=== PATIENT | female | born 1995 | race Two or more races ===

== ENCOUNTER 2023-10-24 10:52 | Outpatient (CLI) | payer OTHER, SELFPAY ==
[2023-10-24 12:06] LABS: HCG,Quantitative 96 mIU/ml (0-5.42)
[2023-10-25 08:25] LABS: Progesterone 6.3 ng/mL (.)
== END 2023-10-24 23:59 | disposition home or self-care (01) ==
PROVIDERS: Visit Provider Obstetrics & Gynecology
DX: N92.6 Irregular menstruation, unspecified (principal); Z32.00 Encounter for pregnancy test, result unknown
CPT/HCPCS: 36415; 84144; 84702

== ENCOUNTER 2023-10-29 09:05 | Outpatient (CLI) | payer OTHER, SELFPAY ==
[2023-10-29 10:15] LABS: HCG,Quantitative 1115 mIU/ml (0-5.42)
== END 2023-10-29 23:59 | disposition home or self-care (01) ==
LOC: LAB 09:06
PROVIDERS: Visit Provider Obstetrics & Gynecology
DX: Z32.00 Encounter for pregnancy test, result unknown (principal)
CPT/HCPCS: 84702

== ENCOUNTER 2023-11-06 16:24 | Outpatient (CLI) | payer OTHER, SELFPAY ==
[2023-11-06 17:38] LABS: HCG,Quantitative 6920 mIU/ml (0-5.42)
== END 2023-11-06 23:59 | disposition home or self-care (01) ==
LOC: LAB 16:24
PROVIDERS: Visit Provider Obstetrics & Gynecology
DX: O26.891 Other specified pregnancy related conditions, first trimester (principal); Z3A.01 Less than 8 weeks gestation of pregnancy
CPT/HCPCS: 36415; 84702; 86850; 87086

== ENCOUNTER 2023-11-14 12:49 | Outpatient (CLI) | payer SELFPAY ==
--- NOTE | 2023-11-14 12:50 | US_ITS ---
PROCEDURE: US OB <= 14 WEEKS FETUS CLINICAL INDICATION: for dates, and confirm viability COMPARISON: No exams were available for comparison FINDINGS: Transvaginal sonographic images of the pelvis were obtained. From her last menstrual period she is 7weeks 2days. The uterus is retroverted. An intrauterine gestational sac is present with a pole with a crown-rump length of 0.51cm This correlates to a gestational age of 6weeks 2days. heart tones are present with an FHR of 124bpm. Yolk sac is noted. The yolk sac measures 6.0mm. There appears to be a small subchorionic hemorrhage. The right ovary is seen and appears normal. The left ovary is seen and appears normal. There is no fluid in the cul-de-sac. IMPRESSION: 1. Retroverted uterus with a viable intrauterine . From her last menstrual period she is 7 weeks 2 days. 2. Fetus measures 6 weeks 2 days and her due date should be revised to reflect this. Her revised ANTOLIN will be 07/07/2024. 3. Both ovaries are seen and appear normal. 4. No fluid in the cul-de-sac. Dictated by: Mika Gracia MD 11/14/2023 17:08 Mika Gracia MD in [facility] 11/14/2023 17:08
== END 2023-11-14 23:59 | disposition home or self-care (01) ==
LOC: RAD 12:50
PROVIDERS: Visit Provider Obstetrics & Gynecology
DX: Z87.59 Personal history of other complications of pregnancy, childbirth and the puerperium; Z3A.01 Less than 8 weeks gestation of pregnancy; O36.80X0 Pregnancy with inconclusive fetal viability, not applicable or unspecified
CPT/HCPCS: 76801

== ENCOUNTER 2024-01-11 11:40 | Outpatient (CLI) | payer OTHER, SELFPAY ==
[2024-01-11 12:25] LABS: Basophils # 0.1 K/mm3 (0-0.2); Basophils % 0.7 % (0.1-2.0); Eosinophils # 0.1 K/mm3 (0.0-0.4); Eosinophils % 0.6 % (0.1-12.0); Hemoglobin 13.1 g/dL (12.2-16.2); Lymphocytes # 2.9 K/mm3 (0.7-4.5); Lymphocytes % 31.6 % (10-50); Mean Corpuscular HGB Conc 34.5 g/dL (31.8-35.4); Mean Corpuscular Volume 92.6 fl (81-99); Mean Platelet Volume 8.9 fl (7.4-10.4); Monocytes # 0.6 K/mm3 (0.1-1.0); Neutrophils # 5.6 K/mm3 (1.8-7.8); Platelet Count 278 K/mm3 (142-424); Red Cell Distribution Width 13.7 % (11.5-17.5); White Blood Count 9.2 K/mm3 (4.8-10.8)
[2024-01-12 05:15] LABS: HCV Ab Non Reactive (Non Reactive); Hepatitis B Surface Antigen Negative (Negative)
[2024-01-12 07:22] LABS: Rubella Antibodies, IgG 1.28 index (Immune >0.99)
[2024-01-12 10:07] LABS: HIV (1&2) Antibody Rapid NONREACTIVE (NONREACTIVE)
[2024-01-12 12:12] LABS: Rapid Plasma Reagin Ab Titer Non Reactive titer (NonRea<1:1)
== END 2024-01-11 23:59 | disposition home or self-care (01) ==
PROVIDERS: Visit Provider Obstetrics & Gynecology
DX: Z34.90 Encounter for supervision of normal pregnancy, unspecified, unspecified trimester (principal)
CPT/HCPCS: 86703; 86803; 36415; 85025; 86593; 86762; 86850; 87340

== ENCOUNTER 2024-02-13 12:36 | Outpatient (CLI) | payer SELFPAY ==
--- NOTE | 2024-02-13 12:43 | US_ITS ---
PROCEDURE: US OB >= 14 WEEKS FETUS CLINICAL INDICATION: US OB After 14 wks for a OB Complete Anatomy scan COMPARISON: US US OB <= 14 WEEKS FETUS from 11/14/2023 FINDINGS: Transabdominal sonographic images of the pelvis were obtained. From her established due date she is 19 weeks 2 days. Single viable intrauterine gestation. Cephalic position. Placenta: Posteriorplacenta grade 1. There is a placental Conner. There is an average amount of fluid. The cervix appears satisfactory. Closed and measuring 4.8 cm in length. Complete survey performed and was unremarkable on the submitted images as in PACS. No discrete anomalies identified on survey imaging by technologist. Active fetus. Three-vessel cord with satisfactory umbilical cord insertion. 4- chamber heart noted. Situs, aortic arch, RVOT, three-vessel view appear normal. Survey of brain & ventricles Unremarkable. Cerebellum, thalamus, choroid plexus, cisterna magna appear normal. Face and neck survey unremarkable. Profile, nasion, lips and nose appeared normal. Diaphragm and chest views unremarkable. Abdomen: Both kidneys noted and unremarkable. Stomach and bladder noted and satisfactory. Spine: Survey of the spine satisfactory with no anomalies identified nor imaged. Cervical, thoracic, lower spine appear normal. Both arms and legs noted. Amniotic Fluid: Adequate. MVP 2.54 cm. Measurements: Average ultrasound age 18weeks 4days. Estimated due date by ultrasound age 0207/12/2024. Estimated weight 226g BPD = 18weeks 6days HC = 18weeks 5days AC = 18weeks 0 days FL = 18weeks 2days Growth Percentile= 4 Heart Rate = 133bpm Cerebellum = 19weeks 0 days Humerus = 18weeks 1day HC/AC is 1.28 FL/BPD is 0.64 FL/AC is 0.22 IMPRESSION: 1. Viable fetus in the cephalic presentation with a posterior placenta grade 1. There is a placental Conner. 2. The fluid is within normal limits with an MVP 2.54 cm. 3. Anatomical scan appears normal although somewhat difficult scan secondary to the early gestational age. 4. biometry is consistent with the dates. 5. Suggest repeat scan in 2-3 weeks for completeness. The heart was not seen well. Dictated by: Mika Gracia MD 02/13/2024 15:33 Mika Gracia MD in [facility] 02/13/2024 15:33
== END 2024-02-13 23:59 | disposition home or self-care (01) ==
PROVIDERS: Visit Provider Obstetrics & Gynecology
DX: Z36.3 Encounter for antenatal screening for malformations (principal); Z87.59 Personal history of other complications of pregnancy, childbirth and the puerperium; Z3A.20 20 weeks gestation of pregnancy
CPT/HCPCS: 76805

== ENCOUNTER 2024-02-28 10:17 | Outpatient (CLI) | payer SELFPAY ==
--- NOTE | 2024-02-28 10:18 | US_ITS ---
PROCEDURE: US OB /MATERNAL DETAIL CLINICAL INDICATION: repeat anatomy COMPARISON: US US OB <= 14 WEEKS FETUS from 11/14/2023 US US OB >= 14 WEEKS FETUS from 02/13/2024 FINDINGS: Transabdominal sonographic images of the pelvis were obtained. From her established due date she is 21 weeks 3 days. Single viable intrauterine gestation. Cephalic position. Placenta: Posteriorplacenta grade 1. There are several small placental lakes. There is an average amount of fluid. The cervix appears satisfactory. Closed and measuring 5.84 cm in length. Complete survey performed and was unremarkable on the submitted images as in PACS. No discrete anomalies identified on survey imaging by technologist. Active fetus. Three-vessel cord with satisfactory umbilical cord insertion. 4- chamber heart noted. Situs, aortic arch, LVOT, RVOT, three-vessel view appear normal. Survey of brain & ventricles Unremarkable. Cerebellum, thalamus, choroid plexus, cisterna magna appear normal. Face and neck survey unremarkable. Profile, nasion, lips and nose appeared normal. Diaphragm and chest views unremarkable. Abdomen: Both kidneys noted and unremarkable. Stomach and bladder noted and satisfactory. Spine: Survey of the spine satisfactory with no anomalies identified nor imaged. Cervical, thoracic, lower spine appear normal. Both arms and legs noted. Amniotic Fluid: Adequate. Measurements: Average ultrasound age 20weeks 3days. Estimated due date by ultrasound age 0207/14/2024. Estimated weight 330g BPD = 20weeks 6days HC = 20weeks 4days AC = 20weeks 1day FL = 20weeks 0 days Growth Percentile= 3 Heart Rate = 133bpm Cerebellum = 20weeks 2days Humerus = 20weeks 5days HC/AC is 1.22 FL/BPD is 0.66 FL/AC is 0.22 IMPRESSION: 1. Viable fetus in the cephalic presentation with a posterior placenta grade 1. 2. The fluid is within normal limits. 3. Anatomical scan appears normal. 4. biometry is consistent with the dates. Dictated by: Mika Gracia MD 02/29/2024 05:57 Mkia Gracia MD in [place] 02/29/2024 05:57
== END 2024-02-28 23:59 | disposition home or self-care (01) ==
LOC: RAD 10:17
PROVIDERS: Visit Provider Obstetrics & Gynecology
DX: Z34.92 Encounter for supervision of normal pregnancy, unspecified, second trimester (principal); Z3A.21 21 weeks gestation of pregnancy
CPT/HCPCS: 76811

== ENCOUNTER 2024-04-22 11:08 | Outpatient (CLI) | payer SELFPAY ==
[2024-04-22 11:47] LABS: Basophils # 0.1 K/mm3 (0-0.2); Basophils % 0.8 % (0.1-2.0); Eosinophils # 0.1 K/mm3 (0.0-0.4); Eosinophils % 0.7 % (0.1-12.0); Hematocrit 35.6 % (37.0-47.0); Hemoglobin 12.5 g/dL (12.2-16.2); Lymphocytes # 2.2 K/mm3 (0.7-4.5); Lymphocytes % 26.6 % (10-50); Mean Corpuscular HGB Conc 35.2 g/dL (31.8-35.4); Mean Corpuscular Hemoglobin 31.4 pg (27.0-31.2); Mean Corpuscular Volume 89.2 fl (81-99); Mean Platelet Volume 8.5 fl (7.4-10.4); Monocytes # 0.5 K/mm3 (0.1-1.0); Neutrophils # 5.3 K/mm3 (1.8-7.8); Neutrophils % 65.9 % (37.0-80.0); Platelet Count 254 K/mm3 (142-424); Red Blood Count 3.99 M/mm3 (4.20-5.40); Red Cell Distribution Width 13.9 % (11.5-17.5); White Blood Count 8.1 K/mm3 (4.8-10.8)
[2024-04-22 11:59] LABS: Hemoglobin A1C 4.5 % (4.0-6.0)
[2024-04-23 13:12] LABS: Rapid Plasma Reagin Ab Titer Non Reactive titer (NonRea<1:1)
== END 2024-04-22 23:59 | disposition home or self-care (01) ==
PROVIDERS: Visit Provider Obstetrics & Gynecology
DX: Z34.90 Encounter for supervision of normal pregnancy, unspecified, unspecified trimester (principal)
CPT/HCPCS: 36415; 83036; 85025; 86593

== ENCOUNTER 2024-04-25 11:11 | Outpatient (CLI) | payer SELFPAY ==
[2024-04-25 11:16] VITALS: BMI 29.8
[2024-04-25 11:30] LABS: Microscopic, Urine URINE MICROSCOPIC (MICROSCOPIC)
[2024-04-25 11:37] LABS: Appearance,Urine SL CLOUDY (Clear); Blood, Urine Negative (Negative); Color,Urine YELLOW (Yellow); Glucose,Urine (UA) Negative (Negative); Ketones,Urine Negative (Negative); Leukocyte Esterase,Urine Negative (Negative); Nitrate,Urine Negative (Negative); Protein,Urine 1+ (Negative); Specific Gravity, Urine >= 1.030 (1.005-1.030); Urobilinogen,Urine 0.2 EU/dl (0.2)
[2024-04-25 11:43] LABS: Bilirubin,Urine 1+ (Negative)
[2024-04-25 11:51] LABS: Benzodiazepines Screen,Urine Negative ng/ml (<200)
[2024-04-25 11:52] LABS: Amphetamine/Metha Screen,Urine Negative ng/ml (<1000); Barbiturates Screen,Urine Negative ng/ml (<200)
[2024-04-25 11:53] LABS: Cannabinoid Screen,Urine Negative ng/ml (<50)
[2024-04-25 11:54] LABS: Cocaine Screen,Urine Negative ng/ml (<300); Methadone Screen,Urine Negative ng/ml (<300)
[2024-04-25 11:55] LABS: Opiate Screen,Urine Negative ng/ml (<300)
[2024-04-25 11:56] LABS: Phencyclidine Screen,Urine Negative ng/ml (<25)
[2024-04-25 11:58] LABS: Bacteria,Urine 1+ /lpf; RBC,Urine Occasional #/hpf (0-3); WBC,Urine Occasional #/hpf (0-3)
--- NOTE | 2024-04-25 11:58 | ECG_ITS ---
APPROVED REPORT Exam: Resting ECG HR:85 bpm ECG Measurements Heart Rate 85 AXES IN 143 P 54 QRSd 79 QRS 49 QT 357 T 7 QTc 399 Conclusion SINUS RHYTHM NORMAL ECG UNCONFIRMED REPORT Electronically signed by : Jason Toney MD 04/26/2024 09:06:52
[2024-04-25] MEDS: DEXTROSE 5%-LACTATED RINGERS 1,000 ML 999 ML IV (12:05)
[2024-04-25 12:15] VITALS: BP 100/68; PULSE 98; RESP 16; TEMP 36.4; O2SAT 100; BMI 29.8
[2024-04-25 12:17] LABS: Basophils # 0.1 K/mm3 (0-0.2); Basophils % 0.6 % (0.1-2.0); Eosinophils # 0.1 K/mm3 (0.0-0.4); Hematocrit 34.7 % (37.0-47.0); Hemoglobin 12.2 g/dL (12.2-16.2); Lymphocytes # 2.4 K/mm3 (0.7-4.5); Lymphocytes % 22.6 % (10-50); Mean Corpuscular HGB Conc 35.1 g/dL (31.8-35.4); Mean Corpuscular Hemoglobin 31.6 pg (27.0-31.2); Mean Platelet Volume 8.6 fl (7.4-10.4); Monocytes # 0.8 K/mm3 (0.1-1.0); Monocytes % 7.1 % (1.7-9.3); Neutrophils # 7.4 K/mm3 (1.8-7.8); Neutrophils % 68.7 % (37.0-80.0); Platelet Count 276 K/mm3 (142-424); Red Blood Count 3.85 M/mm3 (4.20-5.40); Red Cell Distribution Width 13.3 % (11.5-17.5); White Blood Count 10.8 K/mm3 (4.8-10.8)
[2024-04-25 12:25] LABS: Albumin Level 3.7 g/dl (3.5-5.0); Chloride 106 mmol/L (98-107)
[2024-04-25 12:26] LABS: Potassium 3.2 mmoL/L (3.5-5.1); Sodium 135 mmol/L (136-145)
[2024-04-25 12:28] LABS: Alanine Aminotransferase 11 U/L (12-78); Alkaline Phosphatase 87 U/L (38-126); Anion Gap 11.2 mEq/L (5-15); Aspartate Amino Transferase 21 U/L (14-36); Bilirubin,Total 0.7 mg/dl (0.2-1.3); Blood Urea Nitrogen 10 mg/dl (7-17); Carbon Dioxide 21 mmol/L (22.0-30.0); Creatinine Clearance Estimated 161 mL/min (50-200); Estimated Glomerular Filt Rate 121 ml/min (>60); GFR (African American) 146 ML/MIN (>60)
[2024-04-25 12:29] LABS: Albumin/Globulin Ratio 1.1 (1.1-1.8); Calcium 8.4 mg/dl (8.4-10.2); Globulin 3.4 g/dL (1.3-3.2); Glucose 91 mg/dl (74-100); Magnesium 1.7 mg/dl (1.6-2.3); Total Protein,Serum 7.1 g/dl (6.3-8.2)
[2024-04-25 12:30] LABS: POC Glucose,Bedside 89 (70-110)
== END 2024-04-25 14:18 | disposition home or self-care (01) ==
LOC: OBOUT 11:14 → OB 11:15
PROVIDERS: Visit Provider Obstetrics & Gynecology
DX: O26.893 Other specified pregnancy related conditions, third trimester (principal); R42 Dizziness and giddiness; Z3A.29 29 weeks gestation of pregnancy
CPT/HCPCS: 80053; 80307; 81001; 82962; 83735; 85025; 93005; G0463

== ENCOUNTER 2024-05-28 08:57 | Outpatient (CLI) | payer MEDICAID, SELFPAY ==
--- NOTE | 2024-05-28 09:01 | US_ITS ---
PROCEDURE: US OB BIOPHYSICAL PROFILE CLINICAL INDICATION: SGA, US OB BPP/Growth with SD Ratio and MARYAM COMPARISON: US US OB <= 14 WEEKS FETUS from 11/14/2023 US US OB >= 14 WEEKS FETUS from 02/13/2024 US US OB /MATERNAL DETAIL from 02/28/2024 FINDINGS: Transabdominal sonographic images of the uterus were obtained. From her established due date she is 34 weeks 2 days. The following parameters are obtained: Viable Fetus in the cephalic presentation with a right lateral placenta grade 2. There are multiple placental lakes. Average ultrasound age is 31 weeks 5 days Estimated weight 1722 g, 3 lb 13 oz Measurements: heart Rate = 149bpm BPD = 32 weeks 0 days, 3 percentile HC = 32 weeks 4 days,< 2 percentile AC = 31 weeks 3 days,< 2 percentile FL = 30 weeks 4 days,< 2 percentile HC/AC is 1.08 FL/BPD is 0.73 FL/AC is 0.21 <2 percentile Amniotic fluid index: 8.48cm, MVP 2.98 cm Qualitative AFV:2 Breathing movements: 2 Gross Body Movements: 2 Tone: 2 Biophysical profile score: 8 Doppler evaluation of the umbilical artery: SD ratio: 3.17-4.0, normal up to 3.58 Resistive index: 0.7 No obvious anomalies evident.Kidneys, profile, bladder, stomach, four-chamber heart, three-vessel cord appear normal. IMPRESSION: 1. Viable fetus in the cephalic presentation with a right lateral placenta grade 2. 2. The fluid is within normal limits with an amniotic fluid index 8.48 cm, MVP 2.98 cm. 3. Biophysical profile is 8/8 with good breathing movement and movement seen. 4. The fetus is globally growth restricted less than the 2nd percentile. The abdominal circumference is 3 weeks behind. 5. SD ratio is normal with one slightly elevated SD at 4.0. 6. Discussed the findings with Dr. Caba. Dictated by: Mika Gracia MD 05/28/2024 15:16 Mika Gracia MD in [place] 05/28/2024 15:16
== END 2024-05-28 23:59 | disposition home or self-care (01) ==
LOC: RAD 08:58
PROVIDERS: Visit Provider Obstetrics & Gynecology
DX: O36.5930 Maternal care for other known or suspected poor fetal growth, third trimester, not applicable or unspecified (principal); Z3A.34 34 weeks gestation of pregnancy
CPT/HCPCS: 76816; 76819; 76820

== ENCOUNTER 2024-06-06 11:01 | Outpatient (CLI) | payer MEDICAID, SELFPAY ==
[2024-06-06 11:14] VITALS: BMI 30.8
[2024-06-06 11:18] VITALS: BMI 30.8
--- NOTE | 2024-06-06 11:40 | US_ITS ---
PROCEDURE INFORMATION: Exam: US Biophysical Profile Without Non-Stress Test Exam date and time: 06/06/2024 11:41 AM Age: 28 years old Clinical indication: Screening exam; Routine US screening of fetus; Third trimester (>=28 weeks 0 days); ; Additional info: Non reactive nst TECHNIQUE: Imaging protocol: US biophysical profile without non-stress testing. COMPARISON: US OB BIOPHYSICAL PROFILE 05/28/2024 8:57 AM FINDINGS: Gestation: Single live intrauterine gestation with estimated gestational age of approximately 35 weeks 4 days based on last menstrual period. heart rate: 130 bpm. heart rate 130 bpm. presentation and position: presentation is cephalic. Amniotic fluid (Qualitative): 2/2 Amniotic fluid index: MARYAM is 7.18 cm. Amniotic fluid index 7.18. Largest pocket of approximately 2.8 cm. BIOPHYSICAL PROFILE: breathing (BPP): 2 /2. 2/2 gross body movement (BPP): 2 /2. 2/2 tone (BPP): 2 /2. 2/2 Amniotic fluid (BPP): 2 /2 Biophysical profile score (BPP): 8 /8 BIOMETRY: Estimated due date (AUA): Estimated due date 07-07-24 by last menstrual period. MATERNAL ANATOMY: Cervix: Cervical length measures 3.83 cm. Cervical length of approximately 3.8 cm Other findings: Biophysical profile-01/16. Placenta right lateral. Four chambered heart. Diaphragm unremarkable. Fluid within the urinary bladder. Three-vessel cord IMPRESSION: 1. Single live intrauterine gestation with estimated gestational age of approximately 35 weeks 4 days based on last menstrual period. 2. heart rate 130 bpm. 3. Biophysical profile-01/16. -amniotic fluid index 7.2 cm..
== END 2024-06-06 12:33 | disposition home or self-care (01) ==
LOC: OBOUT 11:02 → OB 11:03
PROVIDERS: Visit Provider Obstetrics & Gynecology
DX: O60.03 Preterm labor without delivery, third trimester (principal); Z3A.35 35 weeks gestation of pregnancy
CPT/HCPCS: 76811; 76819; 76820; G0463

== ENCOUNTER 2024-06-13 12:30 | Outpatient (CLI) | payer MEDICAID, SELFPAY | END 2024-06-13 23:59 | disposition home or self-care (01) | LOC: LAB.DROPOF 06-14 09:31 | PROVIDERS: PCP Obstetrics & Gynecology; Visit Provider Obstetrics & Gynecology | DX: Z34.90 Encounter for supervision of normal pregnancy, unspecified, unspecified trimester (principal) | CPT/HCPCS: 86403 ==

== ENCOUNTER 2024-06-15 14:47 | Inpatient (IN) | payer SELFPAY ==
[2024-06-15 15:01] VITALS: BMI 30.4
[2024-06-15 15:44] LABS: Microscopic, Urine URINE MICROSCOPIC (MICROSCOPIC)
[2024-06-15 15:45] LABS: Basophils % 0.4 % (0.1-2.0); Eosinophils # 0.1 K/mm3 (0.0-0.4); Eosinophils % 0.6 % (0.1-12.0); Hematocrit 32.4 % (37.0-47.0); Hemoglobin 11.1 g/dL (12.2-16.2); Lymphocytes # 2.5 K/mm3 (0.7-4.5); Lymphocytes % 31.1 % (10-50); Mean Corpuscular HGB Conc 34.3 g/dL (31.8-35.4); Mean Corpuscular Hemoglobin 29.9 pg (27.0-31.2); Mean Corpuscular Volume 87.3 fl (81-99); Monocytes # 0.7 K/mm3 (0.1-1.0); Monocytes % 9.2 % (1.7-9.3); Neutrophils # 4.7 K/mm3 (1.8-7.8); Neutrophils % 58.2 % (37.0-80.0); Platelet Count 229 K/mm3 (142-424); Red Blood Count 3.71 M/mm3 (4.20-5.40); Red Cell Distribution Width 12.6 % (11.5-17.5); White Blood Count 8.1 K/mm3 (4.8-10.8)
[2024-06-15 15:49] LABS: Appearance,Urine CLEAR (Clear); Bilirubin,Urine Negative (Negative); Blood, Urine TRACE-I (Negative); Color,Urine YELLOW (Yellow); Glucose,Urine (UA) Negative (Negative); Ketones,Urine 1+ (Negative); Leukocyte Esterase,Urine Negative (Negative); Nitrate,Urine Negative (Negative); PH,Urine 6.5 (5.0-8.5); Protein,Urine Negative (Negative); Specific Gravity, Urine >= 1.030 (1.005-1.030); Urobilinogen,Urine 0.2 EU/dl (0.2)
[2024-06-15 16:02] LABS: Barbiturates Screen,Urine Negative ng/ml (<200)
[2024-06-15 16:03] LABS: Amphetamine/Metha Screen,Urine Negative ng/ml (<1000); Benzodiazepines Screen,Urine Negative ng/ml (<200)
[2024-06-15 16:04] LABS: Cannabinoid Screen,Urine Negative ng/ml (<50)
--- NOTE | 2024-06-15 16:04 | P.HP_ITS ---
OB - H&P: HPI Antepartum History of Present Illness Chief complaint: Scheduled induction of labor History of present illness: Mrs Kamila Heart is a 28 yo at 36w6d who presents to [facility] for scheduled induction of labor for IUGR. Ultrasound with PDC 06/02/24 demonstrated EFW 5%ile, BPP 8/8, MARYAM WNL, UA dopplers normal. PDC recommended delivery at 37 weeks. She had had good care. Past medical history significant for asthma but it has been well controlled this . GBS negative. History of Present Criteria for establishing EDC:: based on 1st trimester US only care: good care Ultrasounds: normal mid trimester US Obstetrical complications: none Labs Blood type: B (+) positive Rubella: immune RPR/VDRL: nonreactive GBS status: negative HBsAG: negative PFSH [facility] Disclaimer: The information contained in this section may have been updated after the patient was seen, as this information can be updated by other users. Medical History (Updated 06/13/24 @ 12:55 by Ana Caba DO) affected by intrauterine growth restriction (IUGR) IUGR (intrauterine growth restriction) Nausea and vomiting during SGA (small for gestational age), , affecting care of mother, antepartum Asthma affecting , antepartum Asthma Polyarthritis Depression Surgical History History of D&C H/O foot surgery Family History Other No significant family history Social History Smoking Status: Never smoker alcohol intake: never current occupational status: other Travel in the last 8 weeks: None Have you lived/traveled outside [place] in past 30 days?: No Contact w/someone who lives/traveled outside US past 30 days?: No Exposure to someone with infectious disease in past 14 days?: No Do you have a fever (greater than 100.4 F or 38 C)?: No Have you tested positive for COVID-19: No Exposed to someone with COVID-19 in past 14 days?: No Do you have a sore throat?: No Do you have a cough?: No Do you have any weakness?: No Do you have any diarrhea?: No Are you experiencing any unusual bleeding?: No Do you have any muscle aches/pain?: No Do you have any abdominal pain?: No Are you experiencing loss of taste or smell?: No Other Medical History Have you received the Flu Vaccine for this season: No Have you received the Pneumonia Vaccine: No Review of Systems Review of Systems Review of systems:: pertinent systems reviewed and negative unless documented below Meds Home Medications and Allergies New Prescriptions to Start Prescriptions: Allergies Allergy/AdvReac Type Severity Reaction Status Date / Time oseltamivir (From Tamiflu) Allergy Mild Verified 06/13/24 11:53 OB - H&P: Exam Constitutional no acute distress and cooperative Routine HEENT Exam Head: Present normocephalic and atraumatic Eye: Absent conjunctivae pink ENT: Present mucous membranes moist Routine Neck Exam Present full ROM Routine Respiratory Exam Present CTA bilaterally and normal respiratory effort Routine Cardiovascular Exam Present RRR Routine Abdominal Exam Present soft (Gravid); Absent tenderness Routine Rectal Exam Patient deferred: visual exam Routine Exam External: Present normal urethra appearance; Absent erythema, swelling, tenderness or lesions Routine Extremities Exam Present full ROM; Absent edema or calf tenderness Routine Neurological Exam Present alert, moving all extremities and normal speech Routine Psychiatric Exam Present normal affect and cooperative Detailed Labor and Delivery Exam Dilation (cm): 1 Effacement (%): 60 Cervix position: mid station: -2 Consistency: soft Baseline heart rate: 140 monitor accelerations: Present monitor decelerations: None terminal superintendent variability: Moderate (11-25) OB - A/P Antepartum (1) affected by intrauterine growth restriction (IUGR): Status: Acute (2) Asthma affecting , antepartum: Status: Acute Additional Plan Planning to breastfeed?: Yes Additional Information:: Admit to [facility] for scheduled induction of labor for IUGR, EFW 5 %ile on 06/02/24 Induction of labor with Cytotec followed by Pitocin GBS negative Close monitoring Anticipate
[2024-06-15 16:06] LABS: Methadone Screen,Urine Negative ng/ml (<300)
[2024-06-15 16:07] LABS: Opiate Screen,Urine Negative ng/ml (<300)
[2024-06-15 16:08] LABS: Phencyclidine Screen,Urine Negative ng/ml (<25)
[2024-06-15 16:15] LABS: Cocaine Screen,Urine Negative ng/ml (<300)
[2024-06-15 16:32] LABS: WBC,Urine Occasional #/hpf (0-3)
[2024-06-15 16:48] VITALS: BP 106/54; PULSE 78; RESP 18; TEMP 36.8; O2SAT 100; BMI 30.4
[2024-06-15] MEDS: PHA TO NURSING INSTRUCTION 1 EACH NOTAPPLIC (16:52)
[2024-06-15] MEDS: miSOPROStol 100MCG TABLET 50 MCG PO (17:05)
--- NOTE | 2024-06-15 18:19 | P.PNANES_ITS ---
[facility] Disclaimer: The information contained in this section may have been updated after the patient was seen, as this information can be updated by other users. Medical History (Updated 06/13/24 @ 12:55 by Ana Caba DO) affected by intrauterine growth restriction (IUGR) IUGR (intrauterine growth restriction) Nausea and vomiting during SGA (small for gestational age), , affecting care of mother, antepartum Asthma affecting , antepartum Asthma Polyarthritis Depression Surgical History History of D&C H/O foot surgery Family History Other No significant family history Social History Smoking Status: Never smoker alcohol intake: never substance use type: denies use current occupational status: unemployed Travel in the last 8 weeks: None [facility] Anesthesia Checklist Patient Identification Patient Identification: Arm Band and Verbal (Name & ) Structural Data Admitted From: Inpatient ([id number]) Planned Operative Procedure/s: Labor epidural Consent for Planned Operative Procedure(s) Verified: Yes Verified Documents: Surgical Consent and History and Physical NPO Status Verified Time NPO: 15:15 Chart Verification Results Verified: CBC and ECG Additional verifications Patient : Yes (36 6/7 wk IUP for IOL) Anesthesia Reactions: No Cardiovascular Assessment Heart Sounds: S1 & S2 Pulse Rhythm: Irregular Peripheral Edema: Yes (2+ KERLINE LE) Airway Assessment Mallampati Score:: Class II C-Spine Mobility Assessed: Yes (FROM demonstrated) TMJ Mobility Assessed: Yes Dentition: Good Dentition (Nothing loose per pt.) Neurological Assessment Level of Consciousness: Awake, Alert, Appropriate and Follows Commands Hx Seizures: No Numbness or tingling in extremities: No Anesthesia Plan Anesthesia Risk discussed: Yes Anesthesia Plan: Verified ASA Class: II Anesthesia Type: Epidural
[2024-06-15] MEDS: LACTATED RINGERS 1000ML 1,000 ML 999 ML IV (18:30)
--- NOTE | 2024-06-15 18:55 | HMH.PROCNOTE ---
[facility] Procedure Note Procedure Note:: Anesthesia Procedure Note 18:00 - Prior to epidural placement, Pt. stated contractions 2/10 on 1-10 pain scale. Labor Epidural Position: Sitting Site: L4-5 Local to skin: Lido 1% x 3mL; x2mL Attempts: 1 Needle: 18g Touhy CADEN to air @: 8cm Heme: NEG; CSF: NEG; Parasthesia: NEG Catheter threaded to skin @: 20cm Test dose w/Lido 1.5% w/Epi 1:200K x 5mL: NEGATIVE Catheter taped to skin @: 16cm Bolus: 0.2% Ropivicaine x 10mL + Fentanyl 50mcg. [employer] started @: 12mL/hr. w/ 0.2% Ropivicaine w/Fentanyl 2mcg/mL Pt. tolerated procedure well. Will continue to follow as needed.: 19:05 - Pt. stated contractions 0/10 after epidural placement.
[2024-06-15] MEDS: LACTATED RINGERS 1000ML 1,000 ML 500 ML IV (19:00)
[2024-06-16] MEDS: DEXTROSE 5%-LACTATED RINGERS 1,000 ML 125 ML IV ×2 (04:32→04:46)
[2024-06-16] MEDS: OXYTOCIN/RINGERS LACTATE 30 UNITS/500 ML BAG IV (04:33)
[2024-06-16 04:43] LABS: RPR W/RFX Titers Nonreactive (Nonreactive)
[2024-06-16] MEDS: ONDANSETRON 4MG/2ML VIAL 4 MG IV (05:15)
[2024-06-16] MEDS: OXYTOCIN/RINGERS LACTATE 30 UNITS/500 ML BAG 999 UNITS IV (08:00)
[2024-06-16] MEDS: OXYTOCIN/RINGERS LACTATE 30 UNITS/500 ML BAG 40 UNITS IV (08:15)
--- NOTE | 2024-06-16 08:16 | EXP.DN ---
Delivery Note Delivery Date:: 06/16/24 Delivery Time:: 07:54 Anesthesia Type: Epidural Was labor medically induced?: Yes Induction method: per misoprostol protocol Gestational age (weeks): 37 Infant delivered prior to 39 weeks?: Yes Justification for early elective delivery:: IUGR Infant Gender: Female at 1 minute: 9 at 5 minutes: 9 LAC or MLE?: LAC Delivery Procedure:: Mom complete with epidural. Pushed for approximately one contraction. Head delivered spontaneously over intact perineum in OA position. No nuchal cord. Baby rotated to GYPSY position. Anterior shoulder delivered with gentle downward pressure. Posterior shoulder and remainder of body delivered spontaneously. Baby placed on maternal abdomen, mouth and nares bulb suctioned, warmed/dried and stimulated. Delayed cord clamping was performed for 60 seconds. Cord was clamped and cut by father of baby. Cord blood was obtained. Placenta delivered spontaneously and intact. Placenta will be sent to pathology for review. Bilateral labial lacerations and first degree perineal laceration noted. Right labial laceration and first degree perineal laceration repaired with 3-0 Vicryl. Hemostasis noted. Left labial abrasion was hemostatic. Mom and baby were skin to skin and doing well after delivery. Live female baby (baby's name is Ashley) APGARs 9 (1 min), 9 (5 min) EBL 75 mL Laceration:: labial Placental Delivery Description: Spontaneous
[2024-06-16] MEDS: IBUPROFEN 400 MG TABLET 800 MG PO ×2 (14:03→20:43)
[2024-06-16] MEDS: ACETAMINOPHEN 500MG TAB 1000 MG PO ×2 (14:04→20:42)
[2024-06-17] MEDS: ACETAMINOPHEN 500MG TAB 1000 MG PO ×2 (04:11→14:41)
[2024-06-17] MEDS: IBUPROFEN 400 MG TABLET 800 MG PO ×2 (04:11→20:08)
[2024-06-17 07:02] LABS: Basophils # 0.1 K/mm3 (0-0.2); Basophils % 0.5 % (0.1-2.0); Eosinophils # 0.2 K/mm3 (0.0-0.4); Eosinophils % 1.5 % (0.1-12.0); Hematocrit 29.2 % (37.0-47.0); Hemoglobin 9.9 g/dL (12.2-16.2); Lymphocytes # 3.3 K/mm3 (0.7-4.5); Lymphocytes % 32.1 % (10-50); Mean Corpuscular HGB Conc 33.9 g/dL (31.8-35.4); Mean Corpuscular Hemoglobin 30.2 pg (27.0-31.2); Mean Platelet Volume 11.1 fl (7.4-10.4); Monocytes # 0.9 K/mm3 (0.1-1.0); Monocytes % 8.9 % (1.7-9.3); Neutrophils # 5.9 K/mm3 (1.8-7.8); Neutrophils % 56.7 % (37.0-80.0); Platelet Count 172 K/mm3 (142-424); Red Blood Count 3.28 M/mm3 (4.20-5.40); Red Cell Distribution Width 12.9 % (11.5-17.5); White Blood Count 10.3 K/mm3 (4.8-10.8)
[2024-06-17 07:45] VITALS: BP 123/62; PULSE 54; RESP 16; TEMP 36.3; O2SAT 99
--- NOTE | 2024-06-17 09:57 | EXP.ACUTE.PN ---
Subjective *Date: 06/17/24 *Time: 11:01 Interval history: PPD # 1 s/p Feeling well. Pain controlled. Breast and formula feeding. Lochia is appropriate. Voiding without difficulty and passing flatus. Tolerating regular diet. Denies fever/chills, chest pain and shortness of breath. No headaches, vision changes, lightheadedness/dizziness. No lower extremity swelling. Ambulating well ad maddy. Medical Exam Vital signs and Labs for Last 24 Hours: Vital Signs Temp Pulse Resp BP Pulse Ox O2 Del Method 06/17/24 07:45 97.4 F L 54 L 16 123/62 99 Room Air Laboratory Results - last 24 hr 06/17/24 06:41: WBC 10.3 D, RBC 3.28 L, Hgb 9.9 L, Hct 29.2 L, MCV 89.0, MCH 30.2, MCHC 33.9, RDW 12.9, Plt Count 172, MPV 11.1 H, Neut % (Auto) 56.7, Lymph % (Auto) 32.1, [place] % (Auto) 8.9, Eos % (Auto) 1.5, Baso % (Auto) 0.5, Neut # (Auto) 5.9, Lymph # (Auto) 3.3, [place] # (Auto) 0.9, Eos # (Auto) 0.2, Baso # (Auto) 0.1 I & O for Labs for Last 24 Hours: Intake & Output 06/14/24 06/15/24 06/16/24 06/17/24 23:59 23:59 23:59 23:59 Weight 161 lb Head: Present atraumatic and normocephalic ENT: Present normal exam Neck: Present normal inspection and full ROM Respiratory: Present CTA bilaterally and normal respiratory effort Cardiac: Present Reg Rate and Rhythm GI: Present soft; Absent distention or tenderness Comments:: Uterine fundus firm and below umbilicus Rectal (female): Present deferred (female): Present deferred Extremities: Present full ROM; Absent edema or calf tenderness Neuro: Present alert, awake and moves all extremities Assessment and Plan *Assessment and plan (1) Status post normal vaginal delivery: Status: Acute Category: Medical (2) affected by intrauterine growth restriction (IUGR): Status: Acute Category: Medical Code(s): O36.5990 - Maternal care for other known or suspected poor growth, unspecified trimester, not applicable or unspecified (3) 37 weeks gestation of : Status: Acute Category: Medical Code(s): Z3A.37 - 37 weeks gestation of (4) Acute blood loss anemia: Status: Acute Category: Medical Code(s): D62 - Acute posthemorrhagic anemia Plan Continue routine care Encouraged increased ambulation Plan d/c home tomorrow
[2024-06-17] MEDS: PRENATAL MULTIVITAMIN W/IRON 1 EACH PO (17:41)
[2024-06-17 20:49] VITALS: BP 103/64; PULSE 56; RESP 18; TEMP 36.5; O2SAT 98
[2024-06-18] MEDS: WITCH HAZEL 40 PADS/BOX 1 EACH TP (01:19)
[2024-06-18] MEDS: LANOLIN CREAM 40GM TP (01:19)
[2024-06-18] MEDS: SENNA 8.6MG TABLET 8.6 MG PO (01:20)
[2024-06-18] MEDS: ACETAMINOPHEN 500MG TAB 1000 MG PO ×2 (01:20→07:33)
[2024-06-18] MEDS: IBUPROFEN 400 MG TABLET 800 MG PO (07:34)
--- NOTE | 2024-06-18 08:46 | EXP.DC.SUM ---
General Admission date:: 06/15/24 Discharge date: 06/18/24 HPI HPI HPI: PPD # 2 s/p Feeling well. Pain controlled. Breast and formula feeding. Lochia is light. Voiding without difficulty and passing flatus. Tolerating regular diet. Denies fever/chills, chest pain and shortness of breath. No headaches, vision changes, lightheadedness/dizziness. No lower extremity swelling. Ambulating well ad maddy. Hospital Course Hospital Course Hospital Course: Mrs Kamila Heart is a 28 yo at 36w6d who presents to [facility] for scheduled induction of labor for IUGR. Ultrasound with PDC 06/02/24 demonstrated EFW 5%ile, BPP 8/8, MARYAM WNL, UA dopplers normal. PDC recommended delivery at 37 weeks. She had had good care. Past medical history significant for asthma but it has been well controlled this . GBS negative. She underwent induction of labor with one dose of Cytotec 50 mcg PO. She had a normal spontaneous vaginal delivery on 06/16/24 at 0754. She delivered a live female baby, Ashley, weighing 5 lb 3 oz. EBL 75 mL. She did well . Pain controlled. Formula feeding. Light lochia. Voiding without difficulty and passing flatus. Tolerating regular diet. Denies fever/chills, chest pain and shortness of breath. No headaches, dizziness/lightheadedness or vision changes. Vital signs stable, afebrile. Heart regular rate and rhythm. Lungs clear to auscultation. Abdomen soft, nontender. No lower extremity swelling. Ambulating well ad maddy. Normal hospital course. She was discharged to home on POD # 2 with instructions to follow-up in the office in 2 weeks or sooner if needed. Exam Data for Last 24 hours Vital signs and Labs for Last 24 Hours: Temp Pulse Resp BP Pulse Ox O2 Del Method 97.7 F 56 L 18 103/64 L 98 Room Air 06/17/24 20:49 06/17/24 20:49 06/17/24 20:49 06/17/24 20:49 06/17/24 20:49 06/17/24 07:45 I & O for Last 24 hours: Intake & Output 01/05/25 01/06/25 01/07/25 01/08/25 23:59 23:59 23:59 23:59 Weight 161 lb Constitutional Constitutional: no acute distress and cooperative *Routine HEENT Exam Head: Present normocephalic and atraumatic Eye: Absent conjunctivae pink ENT: Present mucous membranes moist *Routine Neck Exam Neck: Present full ROM *Routine Respiratory Exam Respiratory: Present CTA bilaterally and normal respiratory effort *Routine Cardiovascular Exam Cardiovascular: Present RRR *Routine Abdominal Exam Abdominal: Present soft; Absent tenderness or distended Comments: Uterine fundus firm and below umbilicus *Routine Rectal Exam Patient deferred: visual exam *Routine Exam Patient deferred: external exam *Routine Extremities Exam Extremities: Present full ROM; Absent edema or calf tenderness *Routine Neurological Exam Neurological: Present alert, moving all extremities and normal speech Routine Psychiatric Exam Psychiatric: Present normal affect and cooperative DS: Diagnosis Discharge Diagnosis (1) Status post normal vaginal delivery: Status: Acute (2) affected by intrauterine growth restriction (IUGR): Status: Acute Code(s): O36.5990 - Maternal care for other known or suspected poor growth, unspecified trimester, not applicable or unspecified (3) 37 weeks gestation of : Status: Acute Code(s): Z3A.37 - 37 weeks gestation of (4) Acute blood loss anemia: Status: Acute Code(s): D62 - Acute posthemorrhagic anemia Meds Home Medications and Allergies Home Medications ?Medication ?Instructions ?Recorded ?Confirmed ?Type ibuprofen 800 mg tablet 800 mg PO Q8H PRN pain #20 tabs 06/18/24 Rx New Prescriptions to Start Prescriptions: ibuprofen Aan Caba Allergies Allergy/AdvReac Type Severity Reaction Status Date / Time oseltamivir (From Tamiflu) Allergy Mild Verified 06/13/24 11:53 Discharge Plan Disposition Patient Disposition: Home, Self-Care Condition: Good Discharge Order Discharge Orders: Discharge Order (Routine); Ordered 06/18/24 Ordered By: Ana Caba Follow up Plan Follow up with: Ana Caba DO [Staff Physician] - 07/02/24 10:30 am Prescriptions/Medication Reconciliation: New ibuprofen 800 mg tablet 800 mg PO Q8H PRN (Reason: pain) Qty: 20 0RF Problem Reconciliation Problems Reviewed?: Yes Patient Discharge Instructions ACTIVITY: Limited activity DIET: continue same diet and regular diet Additional Instructions: Congratulations!! Discharge: 1. Take 800 mg Ibuprofen every 8 hours as needed for pain. You can also take 500-1000 mg of Tylenol in between doses, every 6-8 hours. 2. Nothing in the vagina for 6 weeks - no intercourse, douching or tampons. No tub baths/hot tubs or swimming pools 3. Reasons to return to L&D or call On-Call doctor - fever (greater than 100.4) - heavy vaginal bleeding (soaking through 1 pad in less than 2 hours) - vaginal discharge (malodorous and/or purulent) - severe headaches not resolved by medication or rest and leg tenderness/edema 4. depression/blues - Normal to feel anxious/overwhelmed for first 2 weeks - Talk to your doctor if: severe anxiety, trouble bonding with baby, withdrawing from other family members, thoughts of harming yourself or others Ana Caba DO [facility] [phone] Patient Instructions: Depression, Hemorrhage, DI for Labor and Delivery, Vaginal , DI for Pre-eclampsia, [facility] Post Discharge Instructions Print Language: Slovenian Providers Primary Care Provider: Provider,Referral Admit Provider: Ana Caba Attending Provider: Ana Caba
== END 2024-06-18 11:45 | disposition home or self-care (01) | DRG 806 ==
PROVIDERS: Admitting Provider Obstetrics & Gynecology; Visit Provider Obstetrics & Gynecology
DX: O36.5930 Maternal care for other known or suspected poor fetal growth, third trimester, not applicable or unspecified (principal); D62 Acute posthemorrhagic anemia; Z37.0 Single live birth; Z3A.37 37 weeks gestation of pregnancy; O70.0 First degree perineal laceration during delivery; O99.02 Anemia complicating childbirth
CPT/HCPCS: 36415; 59025; 80307; 81001; 85025; 86592; 86850; 94761; C1758; G0283; J2405; J3010; J7120